=== PATIENT | male | born 1965 | race Caucasian/White ===

== ENCOUNTER → 2017-05-18 | Outpatient (CLI) | payer BC, OTHER ==
--- NOTE | 2017-05-18 10:06 | REP ---
Chest x-ray: Two views. History: Fatigue. . Comparison study: August 10, 2013 and April 13, 2012. . Findings: The lungs are well inflated and free of infiltrate. The pleural angles are sharp. The heart size is normal. Pulmonary vasculature is not increased. No significant bony abnormality is seen. Impression: Negative chest x-ray. Signed by Darryl Pierre MD 05/18/2017 09:58 A
--- NOTE | 2017-05-18 10:35 | ECGEPIP ---
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
== END ==
LOC: M EKG 09:20
PROVIDERS: ATTEND Family Medicine
DX: R53.83 Other fatigue (principal)

== ENCOUNTER → 2020-10-09 | Outpatient (CLI) | payer BC, OTHER ==
[2020-10-09 12:49] LABS: HEMOGLOBIN 14.2 g/dl (13.5-17.5); MEAN CORPUSCULAR HGB CONC 32.3 g/dl (32.0-36.5); PLATELET COUNT, AUTOMATED 293 10^3/uL (150-450); RED BLOOD COUNT 4.73 10^6/uL (4.30-6.10)
[2020-10-09 13:13] LABS: ALBUMIN 4.1 GM/DL (3.2-5.2); ALT/SGPT 36 U/L (12-78); BILIRUBIN,TOTAL 0.7 MG/DL (0.2-1.0); BLOOD UREA NITROGEN 15 MG/DL (7-18); CALCIUM LEVEL 9.4 MG/DL (8.5-10.1); CARBON DIOXIDE LEVEL 32 MEQ/L (21-32); CHLORIDE LEVEL 106 MEQ/L (98-107); CHOLESTEROL LEVEL 187 MG/DL (<200); CHOLESTEROL RISK RATIO 3.462 (<5); CREATININE FOR GFR 1.14 MG/DL (0.70-1.30); GLOMERULAR FILTRATION RATE > 60.0 (>56); GLUCOSE, FASTING 92 MG/DL (70-100); HDL CHOLESTEROL 54 MG/DL (>40); LDL CHOLESTEROL 107 MG/DL (<100); NON-HDL-C 133 MG/DL; POTASSIUM SERUM 4.4 MEQ/L (3.5-5.1); PROSTATIC SPECIFIC AG MONITOR 9.61 NG/ML (< 4.00); SODIUM LEVEL 140 MEQ/L (136-145); TRIGLYCERIDES LEVEL 132 MG/DL (<150)
[2020-10-09 13:14] LABS: TESTOSTERONE 593 NG/DL (241-827); TOTAL 25(OH) VITAMIN D 24.2 NG/ML (30.0-100.0)
[2020-10-09 13:18] LABS: HEMOGLOBIN A1c 5.4 %
== END ==
LOC: M LAB 12:09
PROVIDERS: ATTEND Family Medicine
DX: I10 Essential (primary) hypertension (principal); R53.83 Other fatigue; E03.9 Hypothyroidism, unspecified

== ENCOUNTER → 2020-11-26 | Outpatient (REF) | payer BC, OTHER ==
[2020-11-26 13:57] LABS: APPEARANCE, URINE CLEAR (CLEAR); BACTERIA, URINE AUTO NEGATIVE (NEGATIVE); BILIRUBIN, URINE AUTO NEGATIVE (NEGATIVE); BLOOD, URINE BLOOD NEGATIVE (NEGATIVE); CALCIUM OXALATE CRYSTALS SMALL; COLOR, URINE YELLOW (YELLOW); GLUCOSE, URINE (UA) AUTO NEGATIVE (NEGATIVE); KETONE, URINE AUTO NEGATIVE (NEGATIVE); LEUKOCYTE ESTERASE, URINE AUTO NEGATIVE (NEGATIVE); MUCUS, URINE SMALL (NEGATIVE); NITRITE, URINE AUTO NEGATIVE (NEGATIVE); PROTEIN, URINE AUTO NEGATIVE (NEGATIVE); RBC, URINE AUTO 1 /HPF (0-3); SPECIFIC GRAVITY URINE AUTO 1.026 (1.002-1.035); SQUAMOUS EPITHELIAL CELL UR AU 0 /HPF (0-6); UROBILINOGEN, URINE AUTO 0.2 mg/dL (0.0-2.0); WBC, URINE AUTO 0 /HPF (0-3)
== END ==
LOC: M SMT 12:44
PROVIDERS: ATTEND Nurse Practitioner Women's Health
DX: R97.20 Elevated prostate specific antigen [PSA] (principal)

== ENCOUNTER → 2020-12-02 | Outpatient (REF) | payer OTHER ==
[2020-12-02 18:26] LABS: APPEARANCE, URINE HAZY (CLEAR); BACTERIA, URINE AUTO NEGATIVE (NEGATIVE); BILIRUBIN, URINE AUTO NEGATIVE (NEGATIVE); BLOOD, URINE BLOOD 1+ (NEGATIVE); COLOR, URINE YELLOW (YELLOW); GLUCOSE, URINE (UA) AUTO NEGATIVE (NEGATIVE); KETONE, URINE AUTO NEGATIVE (NEGATIVE); LEUKOCYTE ESTERASE, URINE AUTO NEGATIVE (NEGATIVE); MUCUS, URINE MODERATE (NEGATIVE); NITRITE, URINE AUTO NEGATIVE (NEGATIVE); PROTEIN, URINE AUTO 1+ mg/dL (NEGATIVE); RBC, URINE AUTO 4 /HPF (0-3); SPECIFIC GRAVITY URINE AUTO 1.029 (1.002-1.035); SQUAMOUS EPITHELIAL CELL UR AU 0 /HPF (0-6); UROBILINOGEN, URINE AUTO 0.2 mg/dL (0.0-2.0); WBC, URINE AUTO 1 /HPF (0-3)
== END ==
LOC: M LABSMT 11:28
PROVIDERS: ATTEND Nurse Practitioner Women's Health
DX: R97.20 Elevated prostate specific antigen [PSA] (principal)

== ENCOUNTER → 2021-01-15 | Outpatient (CLI) | payer BC, OTHER ==
--- NOTE | 2021-01-15 15:20 | REPPI ---
INDICATION: ELEVATED PSA. COMPARISON: None. TECHNIQUE: Transrectal prostate sonography. FINDINGS: Trans rectal prostate sonography demonstrates unremarkable seminal vesicles. Prostate gland is heterogeneous, with calcifications and cystic changes noted. Glandular dimensions are measured at 5.0 x 4.8 x 4.1 cm with a calculated glandular volume of 51.9 ml. There are 2 masses identified, 1 in the right apex 1.2 cm in diameter and the other in the right mid gland measuring 0.8 cm. Transrectal sonographic guidance is provided to Dr. Catherine who performed trans rectal ultrasound guided needle biopsy procedure. IMPRESSION: Transrectal prostate sonographic findings as above. <Electronically signed by Dinesh Pierre > 01/15/21 [id number]
== END ==
LOC: M PLAIMG 13:28
PROVIDERS: ATTEND Urology
DX: R97.20 Elevated prostate specific antigen [PSA] (principal)

== ENCOUNTER → 2021-01-15 | Outpatient (REF) | payer OTHER | LOC: M SMT 18:28 | PROVIDERS: ATTEND Urology | DX: R97.20 Elevated prostate specific antigen [PSA] (principal) ==

== ENCOUNTER → 2021-07-31 | Outpatient (CLI) | payer OTHER ==
[2021-08-01 23:08] LABS: PSA FREE 1.19 ng/mL; PSA TOTAL 9.9 ng/mL (0.0-4.0)
== END ==
LOC: M LAB 12:00
PROVIDERS: ATTEND Urology
DX: R97.20 Elevated prostate specific antigen [PSA] (principal)

== ENCOUNTER → 2021-09-29 | Outpatient (CLI) | payer BC, OTHER ==
[2021-09-29 11:59] LABS: HEMOGLOBIN 13.7 g/dl (13.5-17.5); MEAN CORPUSCULAR HEMOGLOBIN 30.2 pg (27.0-33.0); MEAN CORPUSCULAR HGB CONC 32.6 g/dl (32.0-36.5); MEAN CORPUSCULAR VOLUME 92.7 fl (80.0-96.0); PLATELET COUNT, AUTOMATED 283 10^3/uL (150-450); RED BLOOD COUNT 4.53 10^6/uL (4.30-6.10); WHITE BLOOD COUNT 8.4 10^3/uL (4.0-10.0)
[2021-09-29 12:31] LABS: ALT/SGPT 30 U/L (12-78); BILIRUBIN,TOTAL 0.8 MG/DL (0.2-1.0); BLOOD UREA NITROGEN 19 MG/DL (7-18); CALCIUM LEVEL 9.5 MG/DL (8.5-10.1); CARBON DIOXIDE LEVEL 28 MEQ/L (21-32); CHLORIDE LEVEL 108 MEQ/L (98-107); CREATININE FOR GFR 1.24 MG/DL (0.70-1.30); GLOMERULAR FILTRATION RATE > 60.0 (>56); GLUCOSE, FASTING 80 MG/DL (70-100); POTASSIUM SERUM 4.2 MEQ/L (3.5-5.1); SODIUM LEVEL 142 MEQ/L (136-145); TOTAL PROTEIN 6.6 GM/DL (6.4-8.2)
== END ==
LOC: M RAD 10:45
PROVIDERS: ATTEND Urology
DX: R97.20 Elevated prostate specific antigen [PSA] (principal); I44.0 Atrioventricular block, first degree

== ENCOUNTER → 2021-10-01 | Outpatient (CLI) | payer BC, OTHER | LOC: M LABSMTC 11:16 | PROVIDERS: ATTEND Anesthesiology | DX: Z11.52 Encounter for screening for COVID-19 (principal); Z20.822 Contact with and (suspected) exposure to COVID-19 ==

== ENCOUNTER 2021-10-06 07:31 | Day surgery (SDC) | payer BC, OTHER ==
[~2021-10-06] VITALS: Ht 167.6 cm; Wt 69.3 kg
[~2021-10-06 07:31] MED LIST: LIDOCAINE 1% MDV 20ML VIAL SQ PRN; LR 1,000 ML IV ONE; cefTRIAXone SOD 1 GM in D5W MINI-BAG PLUS 50 ML IV ONE
[2021-10-06] MEDS ORDERED: SILD100T7 (07:54)
[2021-10-06] MEDS ORDERED: ONDANSETRON 4MG/2ML VIAL As Ordered ONE (09:27)
[2021-10-06] MEDS ORDERED: LIDOCAINE 2% 100MG/5ML SDV (FOR ANES.) As Ordered ONE (09:27)
[2021-10-06] MEDS ORDERED: propofoL 200 MG/20 ML VIAL As Ordered ONE (09:27)
[2021-10-06] MEDS ORDERED: MIDAZOLAM INJ 2MG/2ML VIAL (J2250 PER 1MG) As Ordered ONE (09:28)
[2021-10-06] MEDS ORDERED: fentaNYL 100 MCG/2 ML INJECTION As Ordered ONE (09:28)
[2021-10-06] MEDS ORDERED: LIDOCAINE 1% SDV 30ML VIAL As Ordered ONE (09:48)
[2021-10-06] MEDS ORDERED: BUPIVACAINE HCL 0.5% 30ML VIAL As Ordered ONE (09:48)
[2021-10-06] MEDS ORDERED: ePHEDrine SULFATE 25 MG/5 ML(5MG/ML) SYRINGE As Ordered ONE (10:01)
[2021-10-06] MEDS ORDERED: CIPR500T39 PO (10:15)
[2021-10-06] MEDS ORDERED: fentaNYL 100 MCG/2 ML INJECTION IV PRN (10:30)
[2021-10-06] MEDS ORDERED: LR 1,000 ML IV SCH (10:30)
[2021-10-06] MEDS ORDERED: ONDANSETRON 4MG/2ML VIAL IV PRN (10:30)
[2021-10-06] MEDS ORDERED: oxyCODONE 5MG TAB PO PRN (10:30)
[2021-10-06 10:35] VITALS: BP 117/67
== END 2021-10-06 12:00 | disposition home or self-care (01) ==
LOC: M SDC 07:31
PROVIDERS: ATTEND Urology
DX: R97.20 Elevated prostate specific antigen [PSA] (principal)
CPT/HCPCS: 55700; 76872; 76942; 88304; 88341; 88342; J0696; J2250; J2405; J3010

== ENCOUNTER → 2022-03-05 | Outpatient (CLI) | payer BC, OTHER ==
[~2022-03-05] MED LIST changes: +CIPR500T39 PO; -LIDOCAINE 1% MDV 20ML VIAL SQ PRN; -LR 1,000 ML IV ONE; +SILD100T7; -cefTRIAXone SOD 1 GM in D5W MINI-BAG PLUS 50 ML IV ONE
[2022-03-06 23:22] LABS: PSA % FREE 14.3 % (.); PSA FREE 0.97 ng/mL; PSA TOTAL 6.8 ng/mL (0.0-4.0)
== END ==
LOC: M LAB 12:22
PROVIDERS: ATTEND Urology
DX: R97.20 Elevated prostate specific antigen [PSA] (principal)

== ENCOUNTER → 2022-08-24 | Outpatient (CLI) | payer BC, OTHER ==
[2022-08-24 14:45] LABS: HEMATOCRIT 40.7 % (42.0-52.0); HEMOGLOBIN 13.2 g/dl (13.5-17.5); MEAN CORPUSCULAR HEMOGLOBIN 30.5 pg (27.0-33.0); MEAN CORPUSCULAR HGB CONC 32.4 g/dl (32.0-36.5); PLATELET COUNT, AUTOMATED 266 10^3/uL (150-450); RED BLOOD COUNT 4.33 10^6/uL (4.30-6.10); WHITE BLOOD COUNT 5.9 10^3/uL (4.0-10.0)
[2022-08-24 15:24] LABS: ALBUMIN 3.7 G/DL (3.2-5.2); ALKALINE PHOSPHATASE 84 U/L (46-116); ALT/SGPT 21 U/L (7.0-40); AST/SGOT 17 U/L (<34); BLOOD UREA NITROGEN 20 MG/DL (9-23); CARBON DIOXIDE LEVEL 29 MMOL/L (20-31); CHLORIDE LEVEL 105 MMOL/L (98-107); CHOLESTEROL LEVEL 164 MG/DL (<200); CHOLESTEROL RISK RATIO 4.43 (<5); CREATININE FOR GFR 1.12 MG/DL (0.70-1.30); GLOMERULAR FILTRATION RATE > 60.0 (>56); GLUCOSE, FASTING 79 MG/DL (60-100); NON-HDL-C 127 MG/DL; POTASSIUM SERUM 4.3 MMOL/L (3.5-5.1); SODIUM LEVEL 141 MMOL/L (136-145); TESTOSTERONE 339 NG/DL (241-827); THYROID STIMULATING HORMONE 2.367 uIU/ML (0.55-4.78)
[2022-08-24 15:47] LABS: LDL CHOLESTEROL 84.4 MG/DL (<100); TOTAL PROTEIN 6.2 G/DL (5.7-8.2); TRIGLYCERIDES LEVEL 213 MG/DL (<150)
[2022-08-24 15:53] LABS: HEMOGLOBIN A1c 5.5 % (4.0-6.0)
== END ==
LOC: M RAD 13:19
PROVIDERS: ATTEND Family Medicine
DX: D64.9 Anemia, unspecified (principal); R53.83 Other fatigue; I10 Essential (primary) hypertension

== ENCOUNTER → 2022-08-24 | Outpatient (REF) | payer OTHER | LOC: M SMT 13:53 | PROVIDERS: ATTEND Urology | DX: R97.20 Elevated prostate specific antigen [PSA] (principal) ==

== ENCOUNTER → 2023-01-27 | Outpatient (REF) | payer OTHER ==
[~2023-01-27] MED LIST changes: +FLOM0.4C39 PO; +HYDR-3713 PO; +ONDA4TAB6 PO
== END ==
LOC: M LABSMT 08:34
PROVIDERS: ATTEND Urology
DX: N20.0 Calculus of kidney (principal); Z30.2 Encounter for sterilization

== ENCOUNTER → 2023-04-14 | Outpatient (CLI) | payer OTHER, BC ==
[2023-04-15 23:07] LABS: PSA % FREE 14.1 % (.); PSA FREE 1.3 ng/mL; PSA TOTAL 9.2 ng/mL (0.0-4.0)
== END ==
LOC: M PLALAB 10:36
PROVIDERS: ATTEND Urology
DX: R97.20 Elevated prostate specific antigen [PSA] (principal)

== ENCOUNTER 2023-07-20 00:10 | Emergency (ER) | payer BC, OTHER ==
[~2023-07-20] VITALS: Ht 167.6 cm; Wt 70.5 kg
[~2023-07-20 00:10] MED LIST changes: -SILD100T7; +SILD100T7 PO; +TEST200I14 IM
[2023-07-20 00:49] LABS: BASO # 0.1 10^3/uL (0.0-0.2); BASO % 0.4 % (0.0-1.0); EOS # 0.1 10^3/uL (0.0-0.5); EOS % 0.4 % (0.0-3.0); HEMATOCRIT 38.5 % (42.0-52.0); HEMOGLOBIN 12.5 g/dl (13.5-17.5); LYMPH # 1.1 10^3/uL (1.5-5.0); LYMPH % 9.9 % (24.0-44.0); MEAN CORPUSCULAR HEMOGLOBIN 30.1 pg (27.0-33.0); MEAN CORPUSCULAR HGB CONC 32.5 g/dl (32.0-36.5); MEAN CORPUSCULAR VOLUME 92.8 fl (80.0-96.0); MONO # 0.9 10^3/uL (0.0-0.8); MONO % 7.5 % (2.0-8.0); NEUTROPHILS # 9.4 10^3/uL (1.5-8.5); NEUTROPHILS % 81.5 % (36.0-66.0); PLATELET COUNT, AUTOMATED 304 10^3/uL (150-450); RED BLOOD COUNT 4.15 10^6/uL (4.30-6.10); WHITE BLOOD COUNT 11.5 10^3/uL (4.0-10.0)
[2023-07-20 01:23] LABS: AMYLASE 164 U/L (30-118)
[2023-07-20 01:24] LABS: ALKALINE PHOSPHATASE 89 U/L (46-116); ALT/SGPT 20 U/L (7.0-40); AST/SGOT 14 U/L (<34); BILIRUBIN,DIRECT 0.2 MG/DL (<0.4); BILIRUBIN,TOTAL 0.5 MG/DL (0.3-1.2); BLOOD UREA NITROGEN 20 MG/DL (9-23); CALCIUM LEVEL 9.1 MG/DL (8.5-10.1); CARBON DIOXIDE LEVEL 25 MMOL/L (20-31); CHLORIDE LEVEL 107 MMOL/L (98-107); CREATININE FOR GFR 1.23 MG/DL (0.70-1.30); GLOMERULAR FILTRATION RATE > 60.0 (>56); GLUCOSE, FASTING 116 MG/DL (60-100); POTASSIUM SERUM 4.1 MMOL/L (3.5-5.1); SODIUM LEVEL 139 MMOL/L (136-145); TOTAL PROTEIN 6.7 G/DL (5.7-8.2)
[2023-07-20 07:17] LABS: LIPASE 43 U/L (12-53)
[2023-07-20] MEDS ORDERED: KETOROLAC 30 MG/ML 1ML VIAL IV ONE (08:20)
[2023-07-20] MEDS ORDERED: ISOVUE-370 76% 100ML VIAL As Ordered ONE (08:29)
[2023-07-20 09:41] VITALS: BP 124/75; TEMP 97.7; O2SAT 98
[2023-07-20 09:43] LABS: RSV AMPLIFICATION NEGATIVE (NEGATIVE)
== END 2023-07-20 10:09 | disposition home or self-care (01) ==
LOC: M ED 00:10
DX: R10.11 Right upper quadrant pain (principal); R10.31 Right lower quadrant pain; K59.00 Constipation, unspecified; N20.0 Calculus of kidney
CPT/HCPCS: 74177; 76705; 80048; 80076; 81001; 82150; 83690; 85025; 87631; 96374; 99284; J1885; Q9967

== ENCOUNTER 2024-02-09 09:52 | Emergency (ER) | payer BC, OTHER ==
[~2024-02-09] VITALS: Ht 167.6 cm; Wt 70.8 kg
[~2024-02-09 09:52] MED LIST changes: +ONDA-282 PO; -ONDA4TAB6 PO
[2024-02-09] MEDS: NS 1,000 ML IV ONE (11:56)
[2024-02-09 12:10] LABS: BASO # 0.1 10^3/uL (0.0-0.2); BASO % 0.9 % (0.0-1.0); EOS # 0.1 10^3/uL (0.0-0.5); HEMATOCRIT 41.4 % (42.0-52.0); HEMOGLOBIN 13.4 g/dl (13.5-17.5); LYMPH # 1.2 10^3/uL (1.5-5.0); LYMPH % 22.9 % (24.0-44.0); MEAN CORPUSCULAR HEMOGLOBIN 29.9 pg (27.0-33.0); MEAN CORPUSCULAR HGB CONC 32.4 g/dl (32.0-36.5); MEAN CORPUSCULAR VOLUME 92.4 fl (80.0-96.0); MONO # 0.5 10^3/uL (0.0-0.8); NEUTROPHILS # 3.5 10^3/uL (1.5-8.5); NEUTROPHILS % 65.2 % (36.0-66.0); PLATELET COUNT, AUTOMATED 249 10^3/uL (150-450); RED BLOOD COUNT 4.48 10^6/uL (4.30-6.10); WHITE BLOOD COUNT 5.4 10^3/uL (4.0-10.0)
[2024-02-09] MEDS ORDERED: ISOVUE-370 76% 100ML VIAL As Ordered ONE (12:18)
[2024-02-09 12:28] LABS: INR 1.02; PARTIAL THROMBOPLASTIN TIME 37.3 SECONDS (24.8-34.2); PROTHROMBIN TIME 13.1 SECONDS (12.5-14.5)
[2024-02-09 12:33] LABS: CK-MB VALUE MASS 1.1 NG/ML (<3.6)
[2024-02-09 13:00] VITALS: BP 137/81
[2024-02-09 13:07] VITALS: TEMP 97.4; O2SAT 99
== END 2024-02-09 13:46 | disposition home or self-care (01) ==
LOC: M ED 09:52
DX: M54.2 Cervicalgia (principal)
CPT/HCPCS: 70498; 71275; 80047; 82550; 82553; 83880; 84484; 85025; 85610; 85730; 93005; 93041; 96360; 99284; Q9967

== ENCOUNTER → 2024-07-05 | Outpatient (CLI) | payer BC | LOC: M LAB 10:34 | PROVIDERS: ATTEND Urology | DX: R97.20 Elevated prostate specific antigen [PSA] (principal) ==

== ENCOUNTER → 2025-06-12 | Outpatient (CLI) | payer BC ==
[~2025-06-12] MED LIST changes: -FLOM0.4C39 PO; +TAMS-18 PO
[2025-06-13 10:53] LABS: PSA % FREE 20.0 % (calc) (>25); PSA FREE 1.7 ng/mL; PSA TOTAL 8.4 ng/mL (< OR = 4.0)
== END ==
LOC: M LAB 11:24
PROVIDERS: ATTEND Urology
DX: R97.20 Elevated prostate specific antigen [PSA] (principal)